=== PATIENT | male | born 1950 | race Caucasian/White ===

== ENCOUNTER 2018-03-11 01:12 | Emergency (ER) | payer MEDICARE, OTHER | END 2018-03-11 02:41 | disposition home or self-care (01) | LOC: D.ER 01:12 | DX: R51 Headache (principal); H61.21 Impacted cerumen, right ear; H93.8X2 Other specified disorders of left ear; I10 Essential (primary) hypertension ==

== ENCOUNTER 2019-04-25 08:03 | Day surgery (SDC) | payer OTHER ==
[2019-04-21 11:59] LABS: ANION GAP 14.6 mmol/L (8-16); CALCIUM 9.1 mg/dL (8.5-10.1); CARBON DIOXIDE 23.1 mmol/L (21.0-32.0); CREATININE - SERUM 1.2 mg/dL (0.6-1.3); POTASSIUM - SERUM 3.7 mmol/L (3.5-5.1)
[2019-04-21 12:16] LABS: HEMATOCRIT 36.4 % (42.0-54.0); HEMOGLOBIN 12.5 g/dL (13.5-17.5); MCH 30.9 pg (26.0-34.0); MCHC 34.3 g/dL (31.0-37.0); MCV 90.1 fL (80.0-100.0); MEAN PLATELET VOLUME 11.4 fL (7.4-10.4); RBC 4.04 10x6/uL (4.20-6.10); RDW 13.4 % (11.5-14.5); WBC 9.5 10x3/uL (4.8-10.8)
[~2019-04-25] VITALS: Ht 170.2 cm; Wt 75.8 kg
[~2019-04-25 08:03] MED LIST: ASPIRIN325 MG PO; BENTYL 20 MG TA20 MG PO; BUT PO; CAF PO; CARAFATE1 G PO; COREG12.5 MG PO; FISH OIL 1,0001 CA1 PO; FLOMAX0.4 MG PO; GLUCOTROL XL 5 M5 MG PO; I-CAPS PO; ISOSORBIDE MONO60 M1 PO; LIPITOR40 MG PO; NORVASC5 MG PO; PERCOCET 5-3251 TAB PO; PHENERGAN25 M1 PO; PLAVIX75 MG PO; PROBIOTIC BLEN1 EACH PO; PROTONIX40 MG PO; SKELAXIN800 MG PO; TRADJENTA5 MG PO; [UNRECOGNIZED DRUG - OTHER] PO
[2019-04-25 08:54] VITALS: BP 129/72; Ht 170.2 cm; Wt 75.8 kg
[2019-04-25] MEDS ORDERED: HYDROCODON-ACE1 EA10 PO (14:32)
--- NOTE | 2019-04-25 17:21 | NUR ---
1700 PT VOIDED A LARGE AMT AND IV REMOVED. DRESSING REINFORCED
--- NOTE | 2019-04-26 15:00 | OP ---
PATIENT NAME: YESSICA DUNHAM MEDICAL RECORD: [id number] :48 LOCATION:[facility] ADMISSION DATE: SURGEON: REJI GIMENEZ MD DATE OF OPERATION: 04/25/2019 PREOPERATIVE DIAGNOSIS: Impingement syndrome of the right shoulder. POSTOPERATIVE DIAGNOSES: 1. Impingement syndrome of the right shoulder. 2. Rotator cuff tear. PROCEDURES: 1. Arthroscopic rotator cuff repair. 2. Arthroscopic distal clavicle excision done through separate incision -- 1 cm. 3. Arthroscopic subacromial decompression, acromioplasty and bursectomy. SURGEON: Reji Gimenez MD COLD TYPE ARTIST: MICHELE Barron INTRAOPERATIVE COMPLICATIONS: None. SUMMARY OF PATHOLOGIC FINDINGS: Unfortunately, the patient did have a full thickness rotator cuff tear not appreciated on preoperative MRI; however, seen at the time of arthroscopy, the patient did have a small superior bicipital labral cyst, which was very gently debrided. No anchors were used at this portion because the labrum was in overall relatively good condition and what appeared to stick down nicely with such a small area of tearing. 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 OPERATIVE SUMMARY IN DETAIL: After obtaining the appropriate preoperative orthopedic surgery consent as well as anesthetic consultation, evaluation and clearance, the patient was brought to the operating and placed on the operating room table in supine position. After adequate general laryngeal mask airway was administered, the patient was placed in left lateral position. All pressure points were well padded to include down leg peroneal pad as well as axillary roll. The patient was held firmly to the operating table using the vacuum pack suction system. Left upper extremity and shoulder were then prepped and draped in routine sterile fashion. The arm was held in Trimano arm holding device, 30 degrees of forward flexion, 30 degrees of abduction with 10 pounds of traction laterally. At this point, the appropriate timeout was taken to include patient identification, appropriate medications, prep and drape as well as fire risk. All was agreed upon. Next, arthroscopy was established in the glenohumeral joint from the posterior portal, anterior portal was established in the anterior safe interval. Transrotator cuff portal was created through which debridement was carried out and decortication of the articular aspect of the supraspinatus tendinous footprint was taken down. Attention was then turned to the subacromial space. Spearfish surface tissue ablation system was utilized to denude the undersurface of the acromion of all soft tissue elements. A 5-0 barrel bur was used for acromioplasty at the level of the acromioclavicular joint. Through a separate anterior portal under direct arthroscopic visualization, distal clavicle was OPERATIVE REPORT [id number] DUNHAM,YESSICA H excised for 1 cm. Attention was then turned to the subacromial space and rotator cuff tear. Further subacromial bursa was taken down with the 5.0 resector, further decortication was also carried out for reapproximation of the rotator cuff. A single #2 inverted FiberWire was placed in a mattress fashion and anchored laterally with a 5.5 SwiveLock from Ar[employer]rex resulted in excellent anatomic christian of the rotator cuff. Having completed this, arthroscopy portals were closed in routine interrupted fashion using 4-0 Prolene. Again, all assisted by Willy Marte at closure. Sterile dressings were applied. The patient was awakened and taken to the recovery room in stable condition. All final needle and sponge counts were correct. TRANSINT:[id number] Voice Confirmation ID: [id number] DOCUMENT ID: [id number] PERNELL DREW, REJI RODRIGUEZ at 1500 CC: [id number] DICTATION DATE: 04/26/19 1043 DEAF TEACHER: 04/26/19 1232 [facility] 04/25/19 [facility] [address] [place] [address]
== END 2019-04-25 17:22 | disposition home or self-care (01) ==
LOC: D.OPS 08:03 → D.PAN 10:45 → D.OPS 11:15
PROVIDERS: Anesthesiology; ATTEND Orthopaedic Surgery
DX: M75.41 Impingement syndrome of right shoulder (principal); M75.101 Unspecified rotator cuff tear or rupture of right shoulder, not specified as traumatic

== ENCOUNTER → 2019-09-02 13:48 | Outpatient (CLI) | payer OTHER ==
[2019-04-25 08:54] VITALS: BMI 26.2
[~2019-09-02 13:48] MED LIST changes: +CYCLOBENZAPRINE10 MG PO; +HYDROCODON-ACE1 EA10 PO
== END | disposition home or self-care (01) ==
LOC: D.MRI 13:48
PROVIDERS: ATTEND Clinical Nurse Specialist Family Health
DX: M25.562 Pain in left knee (principal)

== ENCOUNTER 2019-09-22 08:05 | Inpatient (IN) | payer OTHER ==
[2019-09-21 14:04] LABS: HEMATOCRIT 38.7 % (42.0-54.0); HEMOGLOBIN 13.3 g/dL (13.5-17.5); MCH 31.7 pg (26.0-34.0); MCHC 34.4 g/dL (31.0-37.0); MCV 92.1 fL (80.0-100.0); MEAN PLATELET VOLUME 10.5 fL (7.4-10.4); RBC 4.2 10x6/uL (4.20-6.10); RDW 13.7 % (11.5-14.5); WBC 11.1 10x3/uL (4.8-10.8)
[2019-09-21 14:17] LABS: ANION GAP 14.3 mmol/L (8-16); CALCIUM 8.3 mg/dL (8.5-10.1); CARBON DIOXIDE 24.5 mmol/L (21.0-32.0); CREATININE - SERUM 1.4 mg/dL (0.6-1.3); POTASSIUM - SERUM 3.8 mmol/L (3.5-5.1)
[~2019-09-22] VITALS: Ht 170.2 cm; Wt 75.9 kg
--- NOTE | ~2019-09-22 | HEMODYNAMI ---
PATIENT:YESSICA DUNHAM MEDICAL RECORD: [id number] : 48 [id number] ADMISSION DATE: 09/22/19 Generatedon:09/23/201911:55 Patient name: YESSICA DUNHAM Patient #: [id number] : 1950 Date of study: 09/23/2019 Page: Of Hemodynamic Procedure Report Patient Data Patient Demographics First Name: YESSICA Gender: Male Last Name: ROLY : 1950 [facility] Initial: H Age: 68 year(s) Patient #: [id number] Race: Unknown SSN: [id number] Additional ID: [id number] Contact details [address]: [address] [place] [address] State: [place] City: [place] Zip code: [address] Admission Admission Data Admission Date: 09/22/2019 Admission Time: 14:21 Arrival Date: 09/23/2019 Arrival Time: 0:00 Admit Source: Other Insurance Payor: Private Room #: D.2125 health insurance [facility] #: [id number] Height (in.): 66.93 BSA: 1.86 (m2) Height (cm.): 170 BMI: 25.95 (kg/m2) Weight (lbs.): 165.35 Weight (kg.): 75 Lab Results Lab Result Date: 09/23/2019 Lab Result Time: 0:00 Biochemistry Name Units Result Min Max BUN mg/dl 30 --(----)-* 7 18 Creatinine mg/dl 1.4 --(----)*- 0.6 1.3 CBC Name Units Result Min Max Hemoglobin g/dl 13.3 -*(----)-- 13.5 17.5 Procedure Procedure Types Cath Procedure Diagnostic Procedure LHC LHC w/Coronaries w/Grafts Sedation Charges Moderate Sedation up to 15 minutes PCI Procedure AMI/SVG/SENIOR CARE MANAGER PTCA or Stent SVG-BMS/NIMO Initial Procedure Description Procedure Date Procedure Date: 09/23/2019 Procedure Start Time: 11:37 Procedure End Time: 11:51 Procedure Staff Name Function Chidi Mills MD Performing Physician Donna Nevarez RT Monitor Kacey Carter RN Nurse Edmond Haney RT Scrub Procedure Data Cath Procedure Fluoroscopy Diagnostic fluoroscopy Total fluoroscopy Time: 3.2 time: 3.2 min min Diagnostic fluoroscopy Total fluoroscopy dose: 588 dose: 588 mGy mGy Contrast Material Contrast Material Type Amount (ml) Isovue 300 97 Entry Location Entry Primary Successful Side Size Upsize Upsize Entry Closure Succes sful Closure Location (Fr) 1 (Fr) 2 (Fr) Remarks Device Remarks Femoral Right 6 Fr Exoseal artery Short Estimated blood loss: 10 ml Diagnostic catheters Device Type Used For End Catheter Placement MULTIPACK Pigtail 5 Fr Ventriculography catheter MULTIPACK JL 4.0 5Fr Procedure catheter MULTIPACK 3DRC 5Fr Procedure catheter DIAGNOSTIC AR MOD 5Fr Procedure Catheter (879141A) Procedure Complications No complications Procedure Medications Medication Administration Route Dosage 0.9% NaCl I.V. 100 ml/hr Oxygen etCO2 Nasal cannula 2 l/min Lidocaine 2% added to field 20 Heparin Flush Bag added to field 2 bags (1000units/500ml NS) Fentanyl I.V. 50 mcg Fentanyl I.V. 50 mcg Fentanyl I.V. 50 mcg Heparin Bolus I.V. 4000 units Hemodynamics Rest BSA: 1.86 (m2) HGB: 13.3 (g/dl) O2 Consumption: Estimated: 231.34 (ml/min) O2 Co nsumption indexed: Estimated:124.38 (ml/min/m) Heart Rate: 92 (bpm) Pressure Samples Time Site Value (mmHg) Purpose Heart Use Rate(bpm) 11:40 LV 89/9,25 Snapshot 97 Gradients Valve Time Site Site Mean SEP/DFP Peak To Heart Use 1 2 (mmHg) (sec/min) Peak Rate (mmHg) (bpm) Aortic 11:40 LV AO 86 Snapshots Pre Cath Intra NCS Post Cath Vital Signs Time Heart Resp SPO2 etCO2 NIBP (mmHg) Rhythm Pain Sedation Rate (ipm) (%) (mmHg) Status Level (bpm) 11:24:41 87 31 96 19.7 No Cuff NSR 0 (11) 10(A) , No pain 11:28:30 96 14 96 22.8 159/93(129) NSR 0 (11) 10(A) , No pain 11:32:42 97 24 96 25.8 152/90(114) NSR 0 (11) 10(A) , No pain 11:37:41 100 17 97 28.8 Measuring NSR 0 (11) 10(A) , No pain 11:38:08 104 15 96 25 151/83(113) NSR 0 (11) 10(A) , No pain 11:42:26 87 20 96 25 156/82(118) NSR 0 (11) 10(A) , No pain 11:46:46 96 16 97 31.1 146/78(118) NSR 0 (11) 10(A) , No pain 11:51:04 82 11 97 31 143/76(96) NSR 0 (11) 10(A) , No pain Medications Time Medication Route Dose Verified Delivered Reason Notes Effectiveness by by 11:27:44 0.9% NaCl I.V. 100 Chidi Kacey used for ml/hr Gene Carter child and adolescent psychologist 11:27:50 Oxygen etCO2 2 Chidi Kacey used for Nasal l/min Gene Carter procedure cannula RN 11:27:55 Lidocaine 2% added 20ml Chidi Chidi for local to vial Gene Mills MD anesthetic field 11:27:59 Heparin Flush added 2 Chidi Chidi used for Bag to bags Gene Mills MD procedure (1000units/500ml field NS) 11:28:24 Fentanyl I.V. 50 Chidi Kacey for sedation mcg Gene Carter RN 11:33:00 Fentanyl I.V. 50 Chidi Kacey for sedation mcg Gene Carter RN 11:40:06 Fentanyl I.V. 50 Chidi Kacey for sedation mcg Gene Carter RN 11:46:11 Heparin Bolus I.V. 4000 Chidi Kacey for verif ied units Gene Carter anticoagulation with Dr. INGRID Mills Procedure Log Time Note 10:57:27 Edmond Haney RT(R) sent for patient. Start room use. 10:57:29 Time tracking: Regular hours (M-F 7:00 - 5:00) 10:57:32 Plan of Care:Hemodynamics will remain stable., Cardiac rhythm will remain stable., Comfort level will be maintained., Respiratory function will remain adequate., Patient/ family verbilizes understanding of procedure., Procedure tolerated without complication., Recovers from procedure without complications.. 11:07:18 Arrival Date: 09/23/2019 12:00:00 AM 11:07:40 Admit Source: Other 11:07:43 Insurance Payor : Private health insurance 11:10:26 Patient Height : 66.93 inches 11:10:30 Patient Weight : 165.35 lbs 11:11:50 Lab Result : Hemoglobin 13.3 g/dl 11:11:50 Lab Result : Creatinine 1.4 mg/dl 11:11:50 Lab Result : BUN 30 mg/dl 11:12:39 3a) 45-59 Moderately reduced kidney function. 11:12:55 Maximum allowable contrast dose (3.7 X eGFR X 0.75)147 ml. 11:16:46 Patient received from Med II to CCL 2 Alert and oriented. Tansferred to table in Supine position. 11:16:48 Warm blankets applied, and wero hugger turned on for patient comfort. 11:16:49 Correct patient and procedure confirmed by team. 11:16:50 ECG and BP/O2 sat monitors applied to patient. 11:16:56 H&P Date Dictated: 09/23/2019 Within 30 days and on chart.. 11:16:57 Pre-procedure instructions explained to patient. 11:17:04 Family in patients room. 11:17:11 Snore? Yes 11:17:12 Sleep apnea? Yes 11:17:14 Patient diabetic? Yes. 11:17:24 Dentures? No ? 11:17:29 Is patient on blood thinner?Yes 11:17:32 ACC The patient was administered the following blood thiners within the last 24 hours: ACCPlavix 11:23:47 If diabetic: On Metformin? No 11:23:51 Vital chart was started 11:23:55 Baseline sample Acquired. 11:23:59 Rhythm: sinus rhythm 11:24:00 Full Disclosure recording started 11:24:11 Pre procedure: right dorsailis pedis pulse 1+ Palpable, but thready & weak; easily obliterated 11:24:15 Patient pain scale 0/10 ?. 11:24:20 IV patent on arrival in right hand with 0.9% NaCl at KVO. 11:24:25 Lab results completed and on chart. 11:24:32 Stress Test: no; N/A ? 11:24:36 Right groin area was prepped with chlora-prep and draped in sterile fashion 11:24:37 Alarms reviewed by R. N. 11:24:38 Sharps counted by scrub and verified by R.N. 11:24:48 Physician arrived 11:24:48 --------ALL STOP TIME OUT------ 11:24:55 Final Timeout: patient, procedure, and site verified with staff and physician. All members of the team are in agreement. 11:24:57 Right groin site verified by team. 11:25:05 Fire Safety Assessment: A--An alcohol-based skin anteseptic being used preoperatively., C--Open oxygen or nitrous oxide is being used., D--An ESU, laser, or fiber-optic light is being used. 11:25:19 Physical assessment completed. ASA score P 4 - A patient with severe systemic disease that is a constant threat to life as per Chidi Mills MD. 11:25:23 Sedation plan: IV Moderate Sedation Medication:Versed, Fentanyl 11:26:02 Risk of Mortality: .1 11:26:05 Risk of blood transfusion: .1 11:26:08 Risk of KEISHA: 1.3 11:26:14 Use device set Femoral Dx 11:26:15 ACIST Syringe (37172) opened to sterile field. 11:26:15 Bag Decanter (2002) opened to sterile field. 11:26:16 Medline Cath Pack ([id number]) opened to sterile field. 11:26:17 ACIST Hand Control (51305) opened to sterile field. 11:26:18 ACIST Manifold (92450) opened to sterile field. 11:26:20 DIAGNOSTIC Multipack 5Fr catheter set (NG1463) opened to sterile field. 11:26:23 EMERALD Guide Wire (502-767) opened to sterile field. 11:26:30 SHEATH 6FR [place] (IUR942) opened to sterile field. 11:27:44 0.9% NaCl 100 ml/hr I.V. was administered by Kacey Carter RN; used for procedure; Verbal order read back and verified. 11:27:50 Oxygen 2 l/min etCO2 Nasal cannula was administered by Kacey Carter RN; used for procedure; Verbal order read back and verified. 11:27:55 Lidocaine 2% 20ml vial added to field was administered by Chidi Mills MD; for local anesthetic; Verbal order read back and verified. 11:27:59 Heparin Flush Bag (1000units/500ml NS) 2 bags added to field was administered by Chidi Mills MD; used for procedure; Verbal order read back and verified. 11:28:24 Fentanyl 50 mcg I.V. was administered by Kacey Carter RN; for sedation; Verbal order read back and verified. 11:32:54 Zero performed for pressure channel P1 11:33:00 Fentanyl 50 mcg I.V. was administered by Kacey Carter RN; for sedation; Verbal order read back and verified. 11:36:55 Procedure started. 11:37:55 Local anesthetic to right femoral artery with Lidocaine 2% by Chidi Mills MD.INITIAL ACCESS ONLY 11:38:03 A 6 Fr Short sheath was inserted into the Right Femoral artery 11:39:01 J wire advanced. 11:39:19 A MULTIPACK Pigtail 5 Fr catheter was advanced over the wire and used for Ventriculography. 11:39:22 LV angiography performed. 11:40:06 Fentanyl 50 mcg I.V. was administered by Kacey Carter RN; for sedation; Verbal order read back and verified. 11:40:11 EF : 60 % 11:40:16 Catheter removed. 11:40:22 A MULTIPACK JL 4.0 5Fr catheter was advanced over the wire and used for Procedure. 11:40:30 LCA angiography performed. 11:41:12 A MULTIPACK 3DRC 5Fr catheter was advanced over the wire and used for Procedure. 11:41:17 KIRBY to LAD angiography performed. 11:42:04 RCA angiography performed. 11:42:59 SVG to Circ angiography performed. 11:43:18 Catheter removed. 11:43:38 A DIAGNOSTIC AR MOD 5Fr Catheter ([id number]) was advanced over the wire and used for Procedure. 11:43:57 SVG to RCA occluded. 11:44:00 Catheter removed. 11:44:01 Proceeding to intervention. 11:44:51 GUIDE 6FR AR 1.0 catheter (IA1IF66) opened to sterile field. 11:44:52 INFLATOR Merit BasixCompak (TW4555) opened to sterile field. 11:44:53 CHOICE PT Extra Support 182cm wire ([id number]) opened to sterile field. 11:45:13 Pre PCI Site: [place] mRCA has 90% stenosis. 11:45:20 6 Fr AR1 guide catheter was inserted over the wire 11:45:48 choice pt3 wire advanced. 11:45:50 Wire advanced across lesion. 11:46:11 Heparin Bolus 4000 units I.V. was administered by Kacey Carter RN; for anticoagulation; verified with Dr. Mills Verbal order read back and verified. 11:47:34 Place stent Inflation Number: 1 A INTEGRITY RX 3.0 x 15 stent ([id number]) was prepped and advanced across the Mid RCA 90. The stent was deployed at 13 TANA for 0:05 (min:sec) 0. 11:48:09 EXOSEAL 6Fr (EX600) opened to sterile field. 11:48:16 Tegaderm 4 x 4 (1626W) opened to sterile field. 11:49:34 Sheath removed intact; hemostasis achieved with Exoseal to the Right Femoral artery. 11:49:37 Procedure ended.(Physican Out) 11:49:49 Fluoroscopy time 03.20 minutes. 11:49:53 Fluoroscopy dose: 588 mGy 11:49:53 Flurop Dose total: 588 11:49:58 Dose Area Product 87975 mGy/cm. 11:50:02 Contrast amount:Isovue 300 97ml. 11:50:04 Maximum allowable dose exceeded? No. 11:50:05 Sharps counted by scrub and verified by R.N. 11:50:08 Insertion/operative site no bleeding no hematoma. 11:50:13 Post right femoral artery:stable 11:50:21 Post-procedure physical assessment completed. ASA score P 4 - A patient with severe systemic disease that is a constant threat to life as per Chidi Mills MD. 11:50:26 Post procedure rhythm: unchanged. 11:50:29 Estimated blood loss: 10 ml 11:50:34 Post procedure instruction explained to patient.Patient verbalizes understanding. 11:51:00 Procedure type changed to Cath procedure, Diagnostic procedure, LHC, LHC w/Coronaries w/Grafts, Sedation Charges, Moderate Sedation up to 15 minutes, PCI procedure, AMI/SVG/SENIOR CARE MANAGER PTCA or Stent, SVG-BMS/NIMO Initial 11:51:02 Procedure and supply charges have been captured, reviewed, submitted and are correct. 11:51:22 Procedure Complication : No complications 11:51:25 Vital chart was stopped 11:51:32 [facility] Findings: MVD- PCI performed (see procedure note) 11:51:36 See physician's report for complete and final results. 11:51:39 Report given to [facility] II. 11:51:46 Patient transfered to [facility] with Bed. 11:51:48 Procedure ended. 11:51:48 Full Disclosure recording stopped 11:51:55 End room use (Document Last) 11:52:09 ACC-PCI Only Patient was given prescriptions, or instructed by Chidi Mills MD to start/continue the following medications upon discharge: Plavix 11:53:00 ACT drawn and resulted at 200 seconds. (normal therapeutic range 180-240 seconds). Intervention Summary Intervention Notes Time ActionType Lesion and Equipment Action# Pressure Duration Attributes Used 11:47:34 Place stent Mid RCA INTEGRITY RX 1 13 00:05 3.0 x 15 stent ([id number]) Device Usage Item Name Manufacture Quantity Catalog Number Hospital Part Current Mini mal Lot# / Charge Number Stock Stock Serial# Code ACIST Acist 1 81914 287035 976576 547931 20 Syringe Medical (84630) Systems Inc Bag Decanter Microtek 1 2001S 669037 07372 103650 5 (2001S) Medical Inc. Medline Cath Medline 1 [id number] 677980 86821 271599 5 Pack ([id number]) ACIST Hand Acist 1 13781 711516 280150 166746 5 Control Medical (58780) Systems Inc ACIST Acist 1 51327 139206 954700 061116 5 Manifold Medical (42901) Systems Inc DIAGNOSTIC Cardinal 1 [id number] 192712 92455 147381 30 Multipack Health 5Fr catheter set (RM0953) EMERALD Cardinal 1 502-455 246456 673511 786258 5 Guide Wire Health (502455) SHEATH 6FR Terumo 1 [id number] 527478 186406 303353 40 [place] (EGC769) MULTIPACK Cardinal 1 803183 5 Pigtail 5 Fr Health catheter MULTIPACK JL Cardinal 1 240828 5 4.0 5Fr Health catheter MULTIPACK Cardinal 1 852605 5 3DRC 5Fr Health catheter DIAGNOSTIC Cardinal 1 [id number] 780976 535888 066602 15 AR MOD 5Fr Health Catheter (377925J) GUIDE 6FR AR Medtronic 1 [id number] 825276 08047 455708 1 1.0 catheter ([id number]) INFLATOR Merit 1 ND9167 451260 322017 426764 15 [facility] Medical BasixCompak (HS2036) CHOICE PT [place] 1 [id number] 572212 028914 135835 5 Extra Scientific Support 182cm wire ([id number]) INTEGRITY RX Medtronic 1 [id number] 568265 362249 934295 5 [id number] 3.0 x 15 stent ([id number]) EXOSEAL 6Fr Cardinal 1 EX600 142002 167812 090798 10 (EX600) Health Tegaderm 4 x 3M 1 1626W 425782 617485 905910 5 4 (1626W) Signature Audit [place] Stage Time Signature Unsigned Intra-Procedure 09/23/2019 Donna Nevarez 11:52:34 AM RT(R) Intra-Procedure 09/23/2019 Kacey Carter 11:53:05 AM RN Intra-Procedure 09/23/2019 Chidi Mills 11:55:38 AM Signatures Performing Physician : Signature : Chidi Mills MD Date : Time : Monitor : Donna Nevarez Signature : RT Date : Time : Nurse : Kacey Carter RN Signature : Date : Time : [facility] [address] [place] [address]
[~2019-09-22 08:05] MED LIST changes: -CYCLOBENZAPRINE10 MG PO
[2019-09-22] MEDS ORDERED: CYCLOBENZAPRINE10 MG PO (08:51)
[2019-09-22 08:53] VITALS: BP 182/68; BMI 26.7
[2019-09-22] MEDS ORDERED: HYDROCODON-ACE1 EA10 PO (12:50)
--- NOTE | 2019-09-22 13:38 | NUR ---
PT STARTED HEAVY BREATHING AND GRUNTING SLIGHTLY. I ASKED HIM IF HE WAS HURTING OR IF HE FELT LIKE HE WAS HAVING A HARD TIME BRATHING. HE SAYS IM HURTING ALITTLE HERE (PUTTING HAND ON CHEST). "IT FEELS SCAR TIGHT". I ASKED PT IF HE HAS CHEST PAIN OFTEN. HE VOICE "YES OCCASIONALY". I AKSED IF THIS PAIN IS LIKE THE PAIN HE HAS AT HOME. PT VOICED "UM HMM". I AKSED WHAT HE USUALLY DOES FOR THE CHEST PAIN. HE VOICED"I TAKE NITROGYLECERIN". WILL NOTIFY ANESTHESIA STAT.
--- NOTE | 2019-09-22 13:39 | NUR ---
NOTIFIED ANESTHESIA. ORDER TO GET STATE 12 LEAD EKG NOW. CALLED RESPIRATORY TO GET STAT EKG NOW.
--- NOTE | 2019-09-22 13:45 | NUR ---
RESPIRATORY IS HERE NOW DOING 12 LEAD EKG
--- NOTE | 2019-09-22 13:46 | NUR ---
NOTIFIED DR.IVY KELLY OF PT C/O OF CHEST PAIN AND SHOWN EKG. V.O TO GET NITRO SPRAY SUBLINGUAL SPRAY NOW AND AGAIN AFTER 5 MINUTES AND RE ASSESS CHEST PAIN. WILL GIVE ONE SUBLINGUAL SPRAY OF NITRO NOW AND WILL RE ASSESS IN 5 MINUTES.
--- NOTE | 2019-09-22 13:48 | NUR ---
GAVE FIRST NITRO SUBLIGUAL SPRAY
--- NOTE | 2019-09-22 13:53 | NUR ---
REASSESSED CHEST PAIN AND PT SAYS "YES IT STILL FEELS TIGHT". WHEN ASKED IF ANY BETTER THE PT VOICED "NO". ADMINISTERING ANOTHER NITRO SUBLINGUAL SPRAY AT THIS TIME ORDERED.
--- NOTE | 2019-09-22 13:58 | NUR ---
CONSULTED WITH ANESTHESIA THAT PT STILL C/O OF TIGHTNESS IN HIS CHEST AND NUMBNESS IN HIS RIGHT ARM. V.O TO CONSULT MECHANICAL ENGINEERING TECHNICIAN. I CALL MECHANICAL ENGINEERING TECHNICIAN AT THIS TIME. WANT TO SEE THE PT EKG NOW. IS WALKING EKG OVER TO NOW. WILL CONTIUE TO MONITOR PT
--- NOTE | 2019-09-22 14:11 | NUR ---
JUST RETURNED FROM TALKING WITH DR.ST. KAUFMAN. Vishnu.O TO ADMIT PT TO PCU UNDER AND TO GIVE 1IN NITRO PASTE NOW AND 2MG OF MORPHINE IV NOW IN PACU. Vanda READ BACK CORRECT.
--- NOTE | 2019-09-22 14:15 | NUR ---
JUST ADMINISTERED 1IN OF NITOR PASTE TO PT CHEST AREA. AND ADMINSITERED 2MG OF MORPHINE IV ORDERED.
--- NOTE | 2019-09-22 14:25 | NUR ---
PT VOICES THAT HIS PAIN HAS GONE DOWN " A TINY BIT". WILL CONTINUE TO MONITOR. I HAVE RECIEVED A ROOM ASSIGNMENT FOR THE PT AND WILL BE CALLING REPORT SOON.
--- NOTE | 2019-09-22 14:35 | NUR ---
CHECK BS AND IS 320. NOTIFIEDE ANESTHESIA AND V.O TO GIVE 10UNITS OF IV INSULIN AND RECHECK IN 30 MINUTES
[2019-09-22 15:41] VITALS: BP 132/70; BMI 26.2
--- NOTE | 2019-09-22 16:00 | NUR ---
NEW PATIENT ADMIT FROM OP VIA STRETCHER ACCOMPANIED BY HOSPITAL PERSONNEL AND FAMILY. PATIENT TRANSFERRED TO HOSPITAL BED . PATIENT IS AWAKE, ALERT AND ORIENTED X 4. PATIENT HAS NITRO OINTMENT TO MED CHEST. IV20 TO RT HAND/THUMB. PATIENT DENIES ANY CHEST PAIN OR NEEDS. RLE WITH CALEB BANDAGE C/D/I. ASSESMENT COMPLETED. WILL CONTINUE WITH PLAN OF CARE.
[2019-09-22 17:19] VITALS: BP 132/70
--- NOTE | 2019-09-22 18:18 | NUR ---
PATIENT LAYING IN BED WATCHING TV. PATIENT IS UNCHANGED VSS . RLE CALEB WRAP C/D/I. + PEDAL PULSES. PATIENT DENIES ANY PAIN OR NEEDS. WILL CONTINUE TO MONITOR. SR UP X 2 BED IN LOW POSITION AND CALL LIGHT IN REACH.
--- NOTE | 2019-09-22 19:45 | NUR ---
PT REPORT RECIEVED FROM INGRID PASCUAL. PT ALERT AND ORIENTED X4. PT COMPLAINS OF CHEST PAIN AND PRESSURE. PT IS POST OPRIGHT KNEE SX. DRESSING C/D/I. VITALS STABLE AT THIS TIME. PT ON 2L O2 AT 95%. BED LOW CALL LIGHT WITHIN REACH. WILL CONTINUE TO MONITOR.
--- NOTE | 2019-09-22 19:47 | NUR ---
PT COMPLAINS OF PRESSURE IN CHEST. EKG DONE SEE CHART. DR. MCGOWAN PAGED PRN ORDER FOR PAIN MEDICATION GIVEN. PT ALERT AND ORIENTED AND VITALS STABLE STABLE. BED LOW CALL LIGHT WITHIN REACH. WILL CONTINUE TO MONITOR.
[2019-09-22 20:00] VITALS: BP 129/76
[2019-09-23] VITALS: BP 125/75
--- NOTE | 2019-09-23 02:59 | NUR ---
PT COMPLAINS OF SOB. O2-97% REPOSTIONED AND SAT PT UP IN BED. WILL CONRINUE TO MONITOR. VITALS STABLE AT THIS TIME.
--- NOTE | 2019-09-23 03:10 | NUR ---
I have reviewed this patient and I concur with the Shift Assessment completed by the Licensed Practical Nurse today this shift.
--- NOTE | 2019-09-23 07:10 | NUR ---
REPORT RECIEVED FROM WOOD MACHINIST AND PATIENT CARE ASSUMED. PATIENT LAYING IN BED AWAKE, ALERT AND ORIENTED X 4. PATIENT IS NPO AWAITING HEART CATH. PATIENT DENIES ANY NEEDS OR PAIN. WILL CONTINUE WITH PLAN OF CARE. SR UP X 2 BED IN LOW POSITION AND CALL LIGHT IN REACH.
[2019-09-23 08:00] VITALS: BP 121/102
--- NOTE | 2019-09-23 10:36 | NUR ---
PHONE CALL RECEIVED FROM SAFETY RELIEF VALVE TECHNICIAN TEAM TO PRE OP PATIENT. PRE OP ADMININSTERED PER MAR. PATIENT IS STABLE AND VSS. AT BS. SR UP BED IN LOW POSITION AND CALL LIGHT IN REACH.
[2019-09-23 10:55] VITALS: BP 146/91
--- NOTE | 2019-09-23 10:55 | NUR ---
PATIENT IS STABLE AND VSS. PATIENT DENIES ANY NEEDS OR PAIN. PATIENT TO SPEECH CLINICIAN VIA HOSPITAL BED AND SPEECH CLINICIAN TEAM.
--- NOTE | 2019-09-23 11:53 | HP ---
PATIENT: YESSICA DUNHAM MEDICAL RECORD: [id number] ACCOUNT: [id number] LOCATION:[address] : [birth year] ADMISSION DATE: 09/22/19 PCP: BRETT KAUR MD HISTORY AND PHYSICAL EXAMINATION DIAGNOSES: 1. Unstable angina class IV. 2. Abnormal ECG. 3. Coronary artery disease. 4. Status post coronary artery bypass graft surgery. 5. Status post previous stenting. 6. Hypertension. 7. Hyperlipidemia. 8. Chronic atrial fibrillation. HISTORY OF PRESENT ILLNESS: Mr. Dunham is known to us with a past history of coronary artery disease, coronary artery bypass graft surgery, and cardiac stenting. He was here for a knee scoping today. He began having severe chest discomfort. He was under local. He had EKG changes, ST depression with the chest pain. His chest pain escalated to 8/10, was there for over an hour. He is now pain free. Past history of coronary artery disease, coronary artery bypass graft surgery, stenting has not been undertaken in years. He was previously on Plavix. He is not on any antithrombotic medication for the atrial fibrillation. He is rate controlled with carvedilol. His heart rate has been fast since he has been here. PHYSICAL EXAMINATION: CONSTITUTIONAL/GENERAL APPEARANCE: Well nourished, well developed, appears stated age. EYES: Lids and conjunctivae noninjected. No discharge. No pallor. ENT: Lips within normal limit. No cyanosis. No pallor. NECK: Carotid arteries, bilateral normal upstroke. No bruits. No thrills. No jugular venous pressure or distention. CERVICAL LYMPH NODES: Nontender. Nonenlarged. THYROID: Not enlarged. No nodules. CARDIOVASCULAR: Precordial exam, nondisplaced. No heaves or pericardial thrills. Rate and rhythm, regular. Heart sounds, normal S1, normal S2. No S3, no gallop, no rub. Systolic murmur, not heard. Diastolic murmur, not heard. RESPIRATORY: Respiratory effort, unlabored. Normal curvature. No thoracic deformity. No chest wall tenderness. Percussion, resonant. Auscultation, clear. No wheezes, no rales, no rhonchi. ABDOMEN: Soft, nondistended, nontender. No abdominal pain, no vomiting and normal appetite. MUSCULOSKELETAL: No joint tenderness, normal gait, normal tone. SKIN: Warm and dry. OVERALL IMPRESSION: Unstable angina, hypertension, hyperlipidemia, family history of coronary artery disease as well as EKG changes, coronary artery disease, most likely he has recurrent hemodynamically significant coronary artery disease. We will proceed with coronary angiography. Further care depends upon the findings of the angiography. TRANSINT:[id number] Voice Confirmation ID: [id number] DOCUMENT ID: [id number] HISTORY AND PHYSICAL [id number] YESSICA DUNHAM JEFFREY MD at 1153 CC: [id number] DICTATION DATE: 09/22/19 1521 NURSES' REGISTRY DIRECTOR: 09/22/19 1532 ADM IN [facility] [address] [id number]
[2019-09-23 11:55] VITALS: Ht 170.2 cm; Wt 75.9 kg
--- NOTE | 2019-09-23 12:53 | NUR ---
WRITTEN SCRIPT FOR [facility] # 40 WITH NO REFILLS GIVEN TO PATIENT AND COPY MADE.
--- NOTE | 2019-09-23 13:30 | NUR ---
PATIENT RETURNED FROM ASSISTANT FITNESS MANAGER VIA HOSPITAL BED AND ASSISTANT FITNESS MANAGER TEAM. PATIENT IS AWAKE, ALERT AND ORIENTED X 4. PATIENT IS DROWSY. AT BS. DRSG TO RT GROIN C/D/I. POSITIVE PEDAL PULSES. VSS. PATIENT DENIES ANY NEEDS OR PAIN. IV INFUSING NS AT 200 ML/HR. SR UP X 2 BED IN LOW POSITION AND CALL LIGHT IN REACH.
--- NOTE | 2019-09-23 14:51 | MORECARE ---
CASE MANAGEMENT DISCHARGE SUMMARY PATIENT: YESSICA DUNHAM H UNIT: [id number] ADM DATE: 09/22/19 AGE: 68 : 49 SEX: M ROOM/BED: D.2125 AUTHOR: JACKSON QUINTERO PHYSICIAN: REFERRING PHYSICIAN: LORETTA MCGOWAN MD DATE OF SERVICE: 09/23/19 Discharge Plan Patient Name: YESSICA DUNHAM [facility] [facility] 1950 Planned Disposition: Home Anticipated Discharge Date: 09/23/19 Discharge Date: Expected LOS: 1 Initial Reviewer: [email or web address] Initial Review Date: 09/23/2019 Generated: 09/23/19 3:51 pm DCPIA - Discharge Planning Initial Assessment Updated by [email or web address]: Miguel Ellsworth on 09/23/19 2:45 pm * Is the patient Alert and Oriented? Yes * How many steps to enter\exit or inside your home? * PCP DR. KAUR * Pharmacy [facility] * Preadmission Environment Home with Family * ADLs Independent * Equipment Walker * Other Equipment NO MEDICAL EQUIPMENT PROVIDER PREFERENCE * List name and contact numbers for known caregivers / representatives who currently or will assist patient after discharge: CHRIS DUNHAM, SPOUSE, * Verbal permission to speak to the caregivers and representatives has been obtained from the patient. Yes * Community resources currently utilized None * Please name any agencies selected above. NONE * Additional services required to return to the preadmission environment? No * Can the patient safely return to the preadmission environment? Yes * Has this patient been hospitalized within the prior 30 days at any hospital? No External Providers [facility] Next Contact Date: 09/23/2019 Service Request Date: Service Type: Resolution: Reviewer: Comments: Patient Name: YESSICA DUNHAM Page [phone] at 1451 All edits/amendments must be made on the electronic document DICTATION DATE: 09/23/19 1450 MEDICAL ACCOUNTANT: NIKKO 09/23/19 1450 RPT#: [id number] DC DATE: STATUS: ADM IN [facility] [address] [place] [address] END OF REPORT
--- NOTE | 2019-09-23 14:57 | MORECARE ---
CASE MANAGEMENT DISCHARGE SUMMARY PATIENT: YESSICA DUNHAM UNIT: [id number] ADM DATE: 09/22/19 AGE: 68 : 49 SEX: M ROOM/BED: D.2415 AUTHOR: LEON,DOC PHYSICIAN: REFERRING PHYSICIAN: LORETTA MCGOWAN MD DATE OF SERVICE: 09/23/19 Discharge Plan Patient Name: YESSICA DUNHAM Facility: [facility]:[place] : 1950 Planned Disposition: Home Anticipated Discharge Date: 09/23/19 Discharge Date: Expected LOS: 1 Initial Reviewer: [email or web address] Initial Review Date: 09/23/2019 Generated: 09/23/19 3:57 pm Comments DCP- Discharge Planning Updated by [email or web address]: Miguel Ellsworth on 09/23/19 1:[address] Patient Name: YESSICA DUNHAM Admission Status: Elective Accout number: [id number] Admission Date: 09-22-2019 : 1950 Admission Diagnosis: Attending: MARLEEN MCGOWAN Current LOS: 1 Anticipated DC Date: 09-23-2019 Planned Disposition: Home Primary Insurance: [employer] PPO Discharge Planning Comments: CM RECEIVED ORDER FOR CRUTCHES. CM MET WITH PT IN ROOM TO DISCUSS DISCHARGE PLANNING AND NEEDS. YESSICA DUNHAM provided verbal consent to discuss current and ongoing needs with/in the presence of: SPOUSE, CHRIS. PT REPORTS LIVING AT HOME INDEPENDENTLY WITH . PT HASWALKER AND NO MEDICAL EQUIPMENT PROVIDER PREFERENCE. PT HAS NO OUTSIDE SERVICES ASSISTING IN THE HOME. CM DISCUSSED AVAILABILITY OF HOME HEALTH, REHAB SERVICES AND MEDICAL EQUIPMENT. PT HAS NO PREFERENCE FOR MEDICAL EQUIPMENT PRPOVIDER FOR CRUTCHES, CHOICE SIGNED. PT REPORTS HIS WILL PICK HIM UP FOR DISCHARGE HOME. CM CALLED [facility], , SPOKE TO TD AND PROVIDED ORDER FOR CRUTCHES. CM FAXED REFERRAL TO [facility] AT [phone]. [facility] TO PROCESS ORDER AND DELIVER CRUTCHES TO PT'S HOSPITAL ROOM FOR DISCHARGE HOME TODAY. Senior Consulting Manager: Miguel Ellsworth DCPIA - Discharge Planning Initial Assessment Updated by [email or web address]: Miguel Ellsworth on 09/23/19 2:45 pm * Is the patient Alert and Oriented? Yes * How many steps to enter\exit or inside your home? * PCP DR. KAUR * [facility] * Preadmission Environment Home with Family * ADLs Independent * Equipment Walker * Other Equipment NO MEDICAL EQUIPMENT PROVIDER PREFERENCE * List name and contact numbers for known caregivers / representatives who currently or will assist patient after discharge: CHRIS DUNHAM, SPOUSE, * Verbal permission to speak to the caregivers and representatives has been obtained from the patient. Yes * Community resources currently utilized None * Please name any agencies selected above. NONE * Additional services required to return to the preadmission environment? No * Can the patient safely return to the preadmission environment? Yes * Has this patient been hospitalized within the prior 30 days at any hospital? No Coverage Notice Reviewer: [id number] Dominick Ellsworth Notice Issued Date-Time: 09/23/2019 14:20 Notice Type: Patient Choice Letter Notice Delivered To: Family Member Relationship to Patient: Spouse Respite Coordinator Name: CHRIS DUNHAM Delivery Method: HAND - Hand Delivered Renee Days: Prior Verbal Notification: Recipient Understood Notice: Yes Recipient Signature: Yes Med Rec Note Co-signed by Attending: Coverage Notice Comment: [facility] Schofield DP export: 09/23/19 1:51 Patient Name: YESSICA DUNHAM Page [phone] at 1457 All edits/amendments must be made on the electronic document DICTATION DATE: 09/23/191456 INSPECTOR FIBROUS WALLBOARD: NIKKO 09/23/191456 RPT#: [id number] DC DATE: STATUS: ADM IN [facility] [address] [place] [address] END OF REPORT
--- NOTE | 2019-09-23 15:46 | NUR ---
PATIENT IS STABLE AND VSS. RT GROIN DRSG C/D/I. PATIENT DENIES ANY NEEDS OR PAIN.WRITTEN AND VERBAL INSTRUCTIONS GIVEN. PATIENT AND VERBALIZED UNDERSTANDING AND PATIENT SIGNED PAPERWORK. IV DCD WITHOUT DIFICULTY WITH ENTIRE CATHETER INTACT.
--- NOTE | 2019-09-23 15:57 | MORECARE ---
CASE MANAGEMENT DISCHARGE SUMMARY PATIENT: YESSICA DUNHAM UNIT: [id number] ADM DATE: 09/22/19 AGE: 68 : 49 SEX: M ROOM/BED: D.8259 AUTHOR: LEON,DOC PHYSICIAN: REFERRING PHYSICIAN: LORETTA MCGOWAN MD DATE OF SERVICE: 09/23/19 Discharge Plan Patient Name: YESSICA DUNHAM Facility: [facility]:[place] : 1950 Planned Disposition: Home Anticipated Discharge Date: 09/23/19 Discharge Date: Expected LOS: 1 Initial Reviewer: [email or web address] Initial Review Date: 09/23/2019 Generated: 09/23/19 4:56 pm Comments DCP- Discharge Planning Updated by [id number]: Miguel Britton on 09/23/19 2:[address] Patient Name: YESSICA DUNHAM Admission Status: Elective Accout number: [id number] Admission Date: 09-22-2019 : 1950 Admission Diagnosis: Attending: MARLEEN MCGOWAN Current LOS: 1 Anticipated DC Date: 09-23-2019 Planned Disposition: Home Primary Insurance: AET[employer] PPO Discharge Planning Comments: CM RECEIVED ORDER FOR CRUTCHES. CM MET WITH PT IN ROOM TO DISCUSS DISCHARGE PLANNING AND NEEDS. YESSICA DUNHAM provided verbal consent to discuss current and ongoing needs with/in the presence of: SPOUSE, CHRIS. PT REPORTS LIVING AT HOME INDEPENDENTLY WITH . PT HASWALKER AND NO MEDICAL EQUIPMENT PROVIDER PREFERENCE. PT HAS NO OUTSIDE SERVICES ASSISTING IN THE HOME. CM DISCUSSED AVAILABILITY OF HOME HEALTH, REHAB SERVICES AND MEDICAL EQUIPMENT. PT HAS NO PREFERENCE FOR MEDICAL EQUIPMENT PRPOVIDER FOR CRUTCHES, CHOICE SIGNED. PT REPORTS HIS WILL PICK HIM UP FOR DISCHARGE HOME. CM CALLED [facility], , SPOKE TO TD AND PROVIDED ORDER FOR CRUTCHES. CM FAXED REFERRAL TO [facility] AT [phone]. [facility] TO PROCESS ORDER AND DELIVER CRUTCHES TO PT'S HOSPITAL ROOM FOR DISCHARGE HOME TODAY. [employer] Production Team Member: Miguel Britton Appended by Miguel Britton on 09/23/2019 15:55 PLATFORM ATTENDANT: CM RECEIVED MESSAGE FROM TD OF [facility], THEY ARE OUT OF NETWORK FOR PT'S INSURANCE. CM CALLED [facility], [facility] AND [facility], NONE HAD CRUTCHES. CM CALLED [facility], SPOKE TO TRISH WHO INFORMED CM THAT THEY HAVE CRUTCHES, CLOSE AT 4PM TODAY AND PT WOULD HAVE TO PERSONALLY COME IN TO STORE TO PROCESS INSURANCE. CM SPOKE TO DITCH DIGGER NURSE, PT WILL NOT DISCHARGE UNTIL 4PM TODAY. CM CALLED [facility] [place], THEY ARE CLOSED AND WILL REOPEN THURSDAY. CM SPOKE TO PT AND SPOUSE IN ROOM, THEY DECIDED TO GO TO [facility] AFTER DISCHARGE AND BUY THE CRUTCHES. BEDSIDE NURSE AND DITCH DIGGER NURSE NOTIFIED. MIGUEL BRITTON, CASE MANAGEMENT DCPIA - Discharge Planning Initial Assessment Updated by [id number]: Miguel Britton on 09/23/19 2:45 pm * Is the patient Alert and Oriented? Yes * How many steps to enter\exit or inside your home? * PCP DR. KAUR * Pharmacy [facility] * Preadmission Environment Home with Family * ADLs Independent * Equipment Walker * Other Equipment NO MEDICAL EQUIPMENT PROVIDER PREFERENCE * List name and contact numbers for known caregivers / representatives who currently or will assist patient after discharge: CHRIS DUNHAM, SPOUSE, * Verbal permission to speak to the caregivers and representatives has been obtained from the patient. Yes * Community resources currently utilized None * Please name any agencies selected above. NONE * Additional services required to return to the preadmission environment? No * Can the patient safely return to the preadmission environment? Yes * Has this patient been hospitalized within the prior 30 days at any hospital? No Coverage Notice Reviewer: [id number] - Miguel Britton Notice Issued Date-Time: 09/23/2019 14:20 Notice Type: Patient Choice Letter Notice Delivered To: Family Member Relationship to Patient: Spouse Night Shift Manager Name: CHRIS DUNHAM Delivery Method: HAND - Hand Delivered Renee Days: Prior Verbal Notification: Recipient Understood Notice: Yes Recipient Signature: Yes Med Rec Note Co-signed by Attending: Coverage Notice Comment: [facility] Schofield DP export: 09/23/19 1:57 Patient Name: YESSICA DUNHAM Page 12374 at 1557 All edits/amendments must be made on the electronic document DICTATION DATE: 09/23/19 7218 PAINT BRUSH MAKER: DM 09/23/19 1556 RPT#: [id number] DC DATE: STATUS: ADM IN [facility] [address] [place] [address] END OF REPORT
--- NOTE | 2019-09-23 16:18 | NUR ---
PATENT IS STABLE AND VSS. PATIENT TO FRONT DOOR VIA WC ACCOMPANIED BY HOSPITAL STAFF AND . PATIENT TO PRIVATE VEHICLE DRIVEN BY . PATIENT DCD HOME FOR SELF CARE.
--- NOTE | 2019-09-26 09:28 | DS ---
PATIENT:YESSICA DUNHAM :48 MEDICAL RECORD: [id number] DISCHARGE SUMMARY ADMISSION DATE: 09/22/19 DISCHARGE DATE: 09/23/19 DATE OF DISCHARGE: 09/23/2019 DIAGNOSES: 1. Unstable angina. 2. Coronary artery disease. 3. Percutaneous transluminal coronary angioplasty and stent to the right coronary artery this admission. HOSPITAL COURSE: Mr. Dunham presents with anginal symptomatology during operative scoping of his knee. He continued to have anginal symptomatology, underwent cardiac catheterization revealing 90% stenosis of the RCA with a closed graft to the RCA, underwent successful PTCA stent of the RCA, discharged home with no change in his medications as he is already on aspirin, Plavix, and statin. Will follow up with [facility] in 1 month. TRANSINT:[id number] Voice Confirmation ID: [id number] DOCUMENT ID: [id number] LORETTA MCGOWAN MD at 0928 CC: [id number] DICTATION DATE: 09/23/19 1152 SALES REPRESENTATIVE SUPERVISOR: 09/23/19 2223 DIS IN 09/23/19 [facility] [address] [place] [address]
--- NOTE | 2019-09-26 09:28 | OP ---
PATIENT NAME: YESSICA DUNHAM MEDICAL RECORD: [id number] :[birth year] LOCATION:D.M2 D.2125 ADMISSION DATE:09/22/19 SURGEON: LORETTA MCGOWAN MD DATE OF OPERATION: 09/23/2019 PROCEDURES: 1. PTCA stent RCA. 2. Left heart catheterization. 3. Selective coronary angiography. 4. Left ventriculogram. INDICATION: Angina and coronary artery disease. PROCEDURE IN DETAIL: After informed consent was obtained and after a detailed description of the risks, benefits as well as alternative therapies, the patient elected to proceed with angiogram and angioplasty. The right femoral area was prepped and draped in normal sterile fashion. Right femoral artery was cannulated via modified Seldinger technique with placement of 6-Bengali sheath. All catheters exchanged through this sheath. FINDINGS: Left ventriculogram was performed in standard 30-degree BROWN view, reveals good cardiac wall motion throughout all segments. Overall ejection fraction estimated at 65%. SELECTIVE CORONARY ANGIOGRAPHY: 1. Left main is with no significant angiographic disease. 2. Left anterior descending is totally occluded. 3. Left circumflex is totally occluded. 4. KIRBY to the LAD is widely patent. Distal LAD is widely patent. 5. Vein graft to the circumflex is widely patent. Distal circumflex is widely patent. 6. Right coronary artery has 90% stenosis that is hazy in the proximal mid vessel. 7. Vein graft to the right coronary artery is closed. PTCA STENT OF THE RCA: The stent used was a 3.0 x 15 mm Integrity. Result was 0% residual stenosis. OVERALL IMPRESSION: Successful percutaneous transluminal coronary angioplasty stent of the right coronary artery going from 90% initial stenosis to 0% residual. TRANSINT:[id number] Voice Confirmation ID: [id number] DOCUMENT ID: [id number] LORETTA MCGOWAN MD at 0928 CC: [id number] DICTATION DATE: 09/23/19 1154 MERINGUER: 09/23/19 1227 DIS IN 09/23/[address] [address] [id number]
--- NOTE | 2019-09-27 15:11 | OP ---
PATIENT NAME: YESSICA DUNHAM MEDICAL RECORD: [id number] :[birth year] LOCATION:D. D.2125 ADMISSION DATE:09/22/19 SURGEON: REJI GIMENEZ MD DATE OF OPERATION: 09/22/2019 PREOPERATIVE DIAGNOSES: Medial meniscus tear of the left knee, lateral meniscus tear of the left knee. POSTOPERATIVE DIAGNOSES: Medial meniscus tear of the left knee, lateral meniscus tear of the left knee. PROCEDURE: 1. Arthroscopic partial medial meniscectomy of the left knee. 2. Arthroscopic partial lateral meniscectomy of the left knee. SURGEON: Reji Gimenez MD ANESTHESIA: General. INTRAOPERATIVE COMPLICATIONS: None. 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 It did appear that the chondral damage was in-line in-keeping with the meniscal tear. The lateral knee compartment appeared to be in overall good position, but the patient did have a complex tear of the posterior horn of the medial meniscus. OPERATIVE SUMMARY IN DETAIL: After obtaining the appropriate preoperative orthopedic surgery consent as well as anesthetic consultation, evaluation and clearance, the patient was brought to the operating room and placed on the operating table in supine position. After adequate general laryngeal mask airway administered and the appropriate timeout was taken, tourniquet was placed about the proximal aspect of the left lower extremity. Left lower extremity was then prepped and draped in routine sterile fashion. The leg was elevated and exsanguinated, tourniquet was inflated to 350 mmHg. The inferolateral portal was established followed by superomedial and inferomedial portal. Diagnostic arthroscopy did show the patient to have both medial and lateral meniscal tearing. Attention was first turned to the medial meniscus. Combination of full radius resector as well as meniscotome was utilized to debride the meniscus back to stable meniscal elements with good residual meniscal tissues noted. Chondromalacia of the medial femoral compartment was noted as described above. Having completed this, the leg was placed in a buapig-sa-xkol position. While in the behivp-us-azch position, the patient was found to have a complex tear of the posterior horn of the lateral meniscus. This was likewise debrided with good cartilage retained. Cartilage retained back to the level of the popliteal hiatus was noted. The lateral compartment was in overall good condition. Having completed this, arthroscopy portals were closed in routine interrupted fashion. Sterile dressings were applied. Tourniquet was deflated. The knee was insufflated with 30 cc of 0.25% Marcaine and 80 mg of Depo-Medrol. Sterile dressings were applied. Tourniquet was deflated. The patient was awakened and taken to the recovery room in stable condition. All final needle and sponge counts were correct. TRANSINT:[id number] Voice Confirmation ID: [id number] DOCUMENT ID: [id number] OPERATIVE REPORT [id number] YESSICA DUNHAM MD, REJI RODRIGUEZ at 1511 CC: [id number] DICTATION DATE: 09/27/19 0836 RISK MODELER: 09/27/19 1014 DIS IN 09/23/19 [id number] [place] [address]
== END 2019-09-23 16:21 | disposition home or self-care (01) | DRG 249 ==
LOC: D.OPS 08:05 → D.M2 08:05 → D.OPS 10:30 → D.PAN 11:45 → D.OPS 11:45 → D.M2 14:21 → D.OPS 15:22 → D.M2 09-23 16:21
PROVIDERS: Anesthesiology; ADMIT Internal Medicine Interventional Cardiology; ATTEND Internal Medicine Interventional Cardiology
PROC: B2111ZZ Fluoroscopy of Multiple Coronary Arteries using Low Osmolar Contrast (ICD-10-PCS; 2019-09-23)
PROC: B2151ZZ Fluoroscopy of Left Heart using Low Osmolar Contrast (ICD-10-PCS; 2019-09-23)
PROC: 02703DZ Dilation of Coronary Artery, One Artery with Intraluminal Device, Percutaneous Approach (ICD-10-PCS; principal; 2019-09-23 10:00)
PROC: 4A023N7 Measurement of Cardiac Sampling and Pressure, Left Heart, Percutaneous Approach (ICD-10-PCS; 2019-09-23 10:00)
DX: I25.110 Atherosclerotic heart disease of native coronary artery with unstable angina pectoris (principal); I48.20 Chronic atrial fibrillation, unspecified; I10 Essential (primary) hypertension; E78.5 Hyperlipidemia, unspecified; R94.30 Abnormal result of cardiovascular function study, unspecified

== ENCOUNTER → 2019-11-14 11:56 | Outpatient (CLI) | payer OTHER ==
[2019-09-23 11:55] VITALS: BMI 26.2
[~2019-11-14 11:56] MED LIST changes: +CYCLOBENZAPRINE10 MG PO
== END | disposition home or self-care (01) ==
LOC: D.MRI 11:56
PROVIDERS: ATTEND Clinical Nurse Specialist Family Health
DX: M25.562 Pain in left knee (principal); M25.561 Pain in right knee

== ENCOUNTER 2019-11-28 09:07 | Outpatient (CLI) | payer OTHER ==
[~2019-11-28] VITALS: Ht 170.2 cm; Wt 65.9 kg
--- NOTE | ~2019-11-28 | OP ---
PATIENT NAME: YESSICA DUNHAM MEDICAL RECORD: [id number] :48 LOCATION:D.CAT ADMISSION DATE: SURGEON: LORETTA MCGOWAN MD DATE OF OPERATION: 11/28/2019 PROCEDURE: DC cardioversion. INDICATIONS: Atrial fibrillation. PROCEDURE IN DETAIL: IV conscious sedation was per anesthesia. Continuous heart rate, O2 saturation, blood pressure monitoring all undertaken, all of which remains stable. He received 1 shock at 275 joules restoring sinus rhythm. OVERALL IMPRESSION: Successful DC cardioversion from atrial fibrillation to sinus rhythm. TRANSINT:[id number] Voice Confirmation ID: [id number] DOCUMENT ID: [id number] LORETTA MCGOWAN MD CC: [id number] DICTATION DATE: 11/28/19 1145 TRAFFIC ENGINEERING TECHNICIAN: 11/28/19 1753 DEP CLI 11/28/19 [id number] [place] [address]
--- NOTE | ~2019-11-28 | HEMODYNAMI ---
PATIENT:YESSICA DUNHAM MEDICAL RECORD: [id number] : 48 LOCATION:[facility] ADMISSION DATE: 11/28/19 Generatedon:11/28/201911:51 Patient name: YESSICA DUNHAM Patient #: [id number] : 1950 Date of study: 11/28/2019 Page: Of Hemodynamic Procedure Report Patient Data Patient Demographics Procedure consent was obtained First Name: YESSICA Gender: Male Last Name: ROLY : 1950 Middle Initial: H Age: 68 year(s) Patient #: [id number] Race: Unknown SSN: [id number] Additional ID: [id number] Contact details Address: [address] [place] [address] State: [place] City: [place] Zip code: [address] Past Medical History Allergies Allergen Reaction Date Comments Reported Other allergy 11/28/2019 BENZODIAZEPINES, DOXYCYCLINE , ELIQUIS, IMITREX, PROZAC, STADOL, TORADOL, VERSED, ZITHROMAX Admission Admission Data Admission Date: 11/28/2019 Admission Time: 9:07 Height (in.): 66.93 BSA: 1.77 (m2) Height (cm.): 170 BMI: 22.84 (kg/m2) Weight (lbs.): 145.51 Weight (kg.): 66 Lab Results Lab Result Date: 11/28/2019 Lab Result Time: 0:00 Biochemistry Name Units Result Min Max BUN mg/dl 21 --(----)-* 7 18 Creatinine mg/dl 1.1 --(--*-)-- 0.6 1.3 eGFR ml/min 70.63154 *-(----)-- 90 120 NONAFRICAN CBC Name Units Result Min Max Hematocrit % 35.2 *-(----)-- 42 54 Hemoglobin g/dl 12.1 *-(----)-- 13.5 17.5 Procedure Procedure Types Cath Procedure Diagnostic Procedure Cardioversion External Procedure Description Procedure Date Procedure Date: 11/28/2019 Procedure Start Time: 11:43 Procedure End Time: 11:48 Procedure Staff Name Function Chidi Mills MD Performing Physician Alisha Maza RT Monitor Donna Nevarez RT Monitor Kacey Carter RN Nurse Reagan Hoskins Additional personnel Procedure Data Cath Procedure Estimated blood loss: 0 ml Procedure Complications No complications Procedure Medications Medication Administration Route Dosage 0.9% NaCl I.V. 100 ml/hr Oxygen etCO2 Nasal cannula 2 l/min Refer to Anesthesia Notes for Sedation Medications Hemodynamics Rest BSA: 1.77 (m2) O2 Consumption: Estimated: 240.72 (ml/min) O2 Consumption indexed : Estimated:136 (ml/min/m) Pre Cath Intra NCS Post Cath Vital Signs Time Heart Resp SPO2 etCO2 NIBP (mmHg) Rhythm Pain Sedation Rate (ipm) (%) (mmHg) Status Level (bpm) 11:26:41 84 20 98 15 141/77(123) A-Fib 0 (11) 10(A) , No pain 11:31:22 91 18 100 15.2 143/95(113) A-Fib 0 (11) 10(A) , No pain 11:36:21 90 24 100 14.5 Measuring A-Fib 0 (11) 10(A) , No pain 11:37:22 88 20 100 19.1 140/82(111) A-Fib 0 (11) 10(A) , No pain 11:42:21 93 11 96 0 Measuring A-Fib 0 (11) 5(A) , No pain 11:42:44 98 11 93 0 119/69(89) A-Fib 0 (11) 5(A) , No pain 11:46:04 70 11 96 0 129/70(108) NSR 0 (11) 10(A) , No pain 11:50:25 96 0 129/68(103) NSR 0 (11) 10(A) , No pain Medications Time Medication Route Dose Verified Delivered Reason Notes Effective ness by by 11:31:27 0.9% NaCl I.V. 100 Chidi Bolandyla used for ml/hr Gene Carter interchange agent 11:31:34 Oxygen etCO2 2 Chidi Devriesa used for Nasal l/min Gene Carter procedure cannula RN 11:31:43 Refer to Chidi Murillo for Anesthesia Gene Mills MD sedation Notes for Sedation Medications Procedure Log Time Note 11:19:34 Informed consent obtained and on chart 11:20:10 Procedure Status Elective Heart Cath (OP). 11:20:11 Time tracking: Regular hours (M-F 7:00 - 5:00) 11:20:15 Plan of Care:Hemodynamics will remain stable., Cardiac rhythm will remain stable., Comfort level will be maintained., Respiratory function will remain adequate., Patient/ family verbilizes understanding of procedure., Procedure tolerated without complication., Recovers from procedure without complications.. 11:20:17 Kacey Carter RN sent for patient. Start room use. 11:20:23 H&P Date Dictated: 11/17/2019 Within 30 days and on chart., H&P Addendum completed by physician on day of procedure. (MUST COMPLETE FOR ALL OUTPATIENTS). 11:23:11 Patient allergic to Other allergyBENZODIAZEPINES, DOXYCYCLINE , ELIQUIS, IMITREX, PROZAC, STADOL, TORADOL, VERSED, ZITHROMAX 11:24:35 Patient arrived from Pre/Post Procedure Room to CCL 3. Patient remains on bed/stretcher for procedure. 11:24:36 Warm blankets applied, and wero hugger turned on for patient comfort. 11:24:36 Correct patient and procedure confirmed by team. 11:24:37 ECG and BP/O2 sat monitors applied to patient. 11:24:45 Patient Weight : 145.51 lbs 11:24:48 Patient Height : 66.93 inches 11:24:56 Vital chart was started 11:25:05 Rhythm: atrial fibrillation 11:25:06 Full Disclosure recording started 11:25:06 Pre-procedure instructions explained to patient. 11:25:06 Pre-op teaching completed and patient verbalized understanding. 11:25:08 Family in patients room. 11:25:09 Patient NPO since Midnight. 11:25:28 Is patient on blood thinner?Yes 11:25:32 ACC The patient was administered the following blood thiners within the last 24 hours: ACCPlavix, Eliquis 11::59 Lab Result : BUN 21 mg/dl 11::59 Lab Result : eGFR NONAFRICAN 70.62419 ml/min 11::59 Lab Result : Creatinine 1.1 mg/dl 11::59 Lab Result : Hemoglobin 12.1 g/dl 11::59 Lab Result : Hematocrit 35.2 % 11:26:03 Lab results completed and on chart. 11:28:21 Snore? Yes 11:28:22 Sleep apnea? Yes 11:28:24 Deviated septum? No 11:28:25 Opens mouth fully? Yes 11:28:27 Sticks out tongue? Yes 11:28:29 Airway obstruction? No ? 11:28:37 Dentures? No ? 11:29:37 Patient diabetic? Yes. 11:29:40 If diabetic: On Metformin? Yes 11:29:42 If on Metformin: Last Dose? 11/27/2019 11:29:47 Patient pain scale 0/10 ?. 11:29:59 IV patent on arrival in right forearm with 0.9% NaCl at [facility]. 11:30:02 Alarms reviewed by Grisel Estrada 11:30:07 Reagan Hoskins present and monitoring patient for TIVA. 11:30:20 Quick Combo opened to sterile field. 11:31:27 0.9% NaCl 100 ml/hr I.V. was administered by Kaecy Carter RN; used for procedure; Verbal order read back and verified. 11:31:34 Oxygen 2 l/min etCO2 Nasal cannula was administered by Kacey Carter RN; used for procedure; Verbal order read back and verified. 11:31:43 Refer to Anesthesia Notes for Sedation Medications was administered by Chidi Mills MD; for sedation; Verbal order read back and verified. 11:35:53 --------ALL STOP TIME OUT------ 11:35:53 Final Timeout: patient, procedure, and site verified with staff and physician. All members of the team are in agreement. 11:36:02 Sedation plan: TIVA Medication:Propofol 11:43:16 Procedure started. 11:43:17 ------Cardioversion------ 11:43:18 Quick combo pads placed on patients chest and back. 11:44:00 Defibrillator synced and charged to 275 Joules. 11:44:11 Shock delivered. 11:44:26 Patient cardioverted to sinus rhythm . 11:44:34 Procedure ended.(Physican Out) 11:45:51 Post-procedure physical assessment completed. ASA score P 2 - A patient with mild systemic disease as per Chidi Mills MD. 11:45:54 Post procedure rhythm: sinus rhythm 11:45:56 Estimated blood loss: 0 ml 11:45:57 Post procedure instruction explained to patient.Patient verbalizes understanding. 11:45:57 Patient needs reinforcement of post procedure teaching. 11:46:46 Procedure and supply charges have been captured, reviewed, submitted and are correct. 11:46:48 Procedure Complication : No complications 11:46:51 Operative report dictated upon procedure completion. 11:46:51 See physician's report for complete and final results. 11:46:54 Report given to Pre/Post Procedure Room. 11:46:59 Patient transfered to Pre/Post Procedure Room with Bed. 11:48:01 Procedure ended. 11:48:01 Full Disclosure recording stopped 11:48:06 End room use (Document Last) 11:48:20 Vital chart was stopped Device Usage Item Manufacture Quantity Catalog Hospital Part Current Minimal Lot# / Name Number Charge Number Stock [facility]# Code [facility] [employer] [id number] Combo Signature Audit [place] Stage Time Signature Unsigned Intra-Procedure 11/28/2019 Alisha Maza 11:49:00 AM RT(R) Intra-Procedure 11/28/2019 Kacey Carter 11:50:52 AM RN Intra-Procedure 11/28/2019 Chidi Mills 11:51:07 AM [place] [id number] [place] [address]
[2019-11-28] MEDS ORDERED: BETAPACE 80 MG80 MG PO (10:04)
[2019-11-28 10:16] VITALS: BP 119/71; Ht 170.2 cm; Wt 65.9 kg
[2019-11-28 10:51] LABS: BASOPHILS 0.1 % (0-2); EOSINOPHILS 0.4 % (0-7); HEMATOCRIT 35.2 % (42.0-54.0); HEMOGLOBIN 12.1 g/dL (13.5-17.5); IMMATURE GRANULOCYTES 0.5 % (0-5); LYMPHOCYTES 11.9 % (15-50); MCH 30.9 pg (26.0-34.0); MCHC 34.4 g/dL (31.0-37.0); MEAN PLATELET VOLUME 9.5 fL (7.4-10.4); MONOCYTES 7.1 % (2-11); RBC 3.91 10x6/uL (4.20-6.10); RDW 12.7 % (11.5-14.5); WBC 12.9 10x3/uL (4.8-10.8)
[2019-11-28 10:56] LABS: INR 1.41 (0.85-1.17); PROTIME 17.1 SECONDS (11.6-15.0)
[2019-11-28 10:59] LABS: ANION GAP 15.3 mmol/L (8-16); CALCIUM 8.6 mg/dL (8.5-10.1); CARBON DIOXIDE 26.1 mmol/L (21.0-32.0); CREATININE - SERUM 1.1 mg/dL (0.6-1.3); POTASSIUM - SERUM 4.4 mmol/L (3.5-5.1)
[2019-11-28 11:07] LABS: PLATELET COUNT 291 10x3/uL (130-400)
--- NOTE | 2019-11-28 11:55 | NUR ---
PATIENT ARRIVED TO ROOM 6, PLACED ON CM. VSS ON CM, WILL CONTINUE TO MONITOR.
--- NOTE | 2019-11-28 12:10 | NUR ---
PATIENT AWAKE AND ALERT, SITTING UP EATING A TURKEY SANDWICH. VSS ON ROOM AIR. NSR ON CM. NO C/O PAIN, NUMBNESS, OR TINGLING. NO N/V.
--- NOTE | 2019-11-28 12:40 | NUR ---
PATIENT AWAKE. VSS ON ROOM AIR, SPOUSE PRESENT AT BEDSIDE. NO C/O PAIN, NUMBNESS, OR TINGLING. NO N/V. WRITTEN AND VERBAL DISCHARGE INSTRUCTIONS GIVEN TO PATIENT AND SPOUSE, BOTH VOICE UNDERSTANDING. SPOKE WITH OFFICE REGARDING SAMPLES OF ELIQUIS FOR PATIENT TO HAVE UNTIL FOLLOW UP APPOINTMENT. PATIENT VOICES UNDERSTANDING.
[2019-11-28] MEDS ORDERED: ELIQUIS5 MG PO (13:10)
--- NOTE | 2019-11-28 13:10 | NUR ---
IV REMOVED. PATIENT DISCHARGED VIA WHEELCHAIR, ALL BELONGINGS WITH PATIENT.
== END 2019-11-28 13:10 ==
LOC: D.CATH 09:07
PROVIDERS: ATTEND Internal Medicine Interventional Cardiology
DX: I48.91 Unspecified atrial fibrillation (principal); I25.10 Atherosclerotic heart disease of native coronary artery without angina pectoris; R06.09 Other forms of dyspnea